=== PATIENT | male | born 1960 | race Caucasian/White ===

== ENCOUNTER 2024-01-05 18:37 | Emergency (ER) | payer BC ==
[~2024-01-05] VITALS: Ht 185.4 cm; Wt 86.4 kg
[2024-01-05 18:47] VITALS: TEMP 98
[2024-01-05] MEDS: HYDROmorphone 1 mg/ml syringe IV ONE (21:15)
[2024-01-05 21:38] LABS: BASOPHILS % (AUTO) 0.2 % (0-1); EOSINOPHILS # (AUTO) 0.1 X10'3 (0-0.9); EOSINOPHILS % (AUTO) 0.5 % (0-6); HEMATOCRIT 45.3 % (42.0-52.0); HEMOGLOBIN 15.2 g/dl (14.0-17.9); LYMPHOCYTES # (AUTO) 1.3 X10'3 (1.1-4.8); LYMPHOCYTES % (AUTO) 9.7 % (21-51); MEAN CORPUSCULAR HEMOGLOBIN 28.5 PG (27.0-31.0); MEAN CORPUSCULAR HGB CONC 33.6 g/dL (33.0-36.5); MEAN CORPUSCULAR VOLUME 84.8 FL (78-98); MEAN PLATELET VOLUME 9.1 FL (7.4-10.4); MONOCYTES # (AUTO) 0.6 X10'3 (0-0.9); MONOCYTES % (AUTO) 4.8 % (2-12); NEUTROPHILS # (AUTO) 11.4 X10'3 (1.8-7.7); NEUTROPHILS % (AUTO) 84.8 % (42-75); PLATELET COUNT 219 X10'3 (140-440); RED BLOOD COUNT 5.34 X10'6 (4.70-6.10); RED CELL DISTRIBUTION WIDTH 13.9 % (11.5-14.5); WHITE BLOOD COUNT 13.4 X10'3 (4.5-11.0)
[2024-01-05] MEDS: TETanus/Pertussis (Acell)/Diphther VAC/PF (Tdap-Adult) 0.5ml syringe IMVAC ONE (21:43)
[2024-01-05 21:48] LABS: INR 1.1 INR; PROTHROMBIN TIME 11.3 SECONDS (9.0-12.0)
[2024-01-05] MEDS: ceFAZolin/D5W- 1GM premix 50 ML IV SCH (22:33)
[2024-01-06 06:33] VITALS: O2SAT 96
[2024-01-06] MEDS: metoclopramide 5 mg/ml inj IV ONE (07:50)
[2024-01-06] MEDS: diphenhydrAMINE 50 mg/ml inj IV ONE (07:50)
[2024-01-06 08:01] VITALS: BP 138/80; PULSE 76; RESP 12
[2024-01-06] MEDS: ceFAZolin/D5W- 1GM premix 50 ML IV SCH (08:59)
== END 2024-01-06 14:42 | disposition left against medical advice (07) ==
LOC: ER 18:38
DX: S62.92XB Unspecified fracture of left hand, initial encounter for open fracture (principal); W27.8XXA Contact with other nonpowered hand tool, initial encounter; Y93.89 Activity, other specified; Y92.89 Other specified places as the place of occurrence of the external cause; Y99.8 Other external cause status
CPT/HCPCS: 36415; 71045; 73130; 85025; 85610; 90471; 90715; 93005; 96365; 99285; J0690; J7030; A6258